=== PATIENT | female | born 1955 | race Caucasian/White ===

== ENCOUNTER 2016-11-11 05:30 | Inpatient (IN) ==
[2016-10-29 09:20] LABS: Basophils # 0.1 10*3/uL (0.0-0.2); Basophils % 0.7 % (0.0-0.8); Eosinophils # 0.2 10*3/uL (0.0-0.87); Eosinophils % 2.5 % (0.00-10.9); Hematocrit 43.1 VOL% (35.7-47.0); Hemoglobin 13.7 GM/DL (12.0-16.0); Immature Granulocytes % 0.4 %; Immature Granulocytes Absolute 0.03 #; Lymphocytes # 2.5 10*3/uL (1.4-4.0); Lymphocytes % 35.5 % (21.3-54.2); Mean Corpuscular HGB Conc 31.8 GM/DL (32-36); Mean Corpuscular Hemoglobin 29 PG (27-34); Mean Corpuscular Volume 90.5 FL (87-102); Mean Platelet Volume 10.2 FL (9.6-12.0); Monocytes # 0.6 10*3/uL (0.11-0.8); Monocytes % 8.7 % (1.7-12.7); Neutrophils # 3.7 10*3/uL (1.4-7.4); Neutrophils % 52.2 % (38.7-73.9); Platelet Count 236 T/CUMM (130-400); Red Blood Count 4.76 MC/CUMM (3.8-5.5); Red Cell Distribution Width 13.4 % (9.3-17.3); White Blood Count 7.1 T/CUMM (4-12)
[2016-10-29 09:27] LABS: Apearance,Urine Slightly Hazy (Clear); Bilirubin,Urine Negative (Negative); Blood, Urine Negative (Negative); Glucose,Urine (UA) Negative (Negative); Ketones,Urine Negative (Negative); Mucus,Urine Occasional /LPF (Occasional); Nitrite,Urine Negative (Negative); Protein,Urine Negative; RBC,Urine 1 /HPF (0-4); Squamous Epithelial Cell,Urine Occasional /HPF (0-10); Urine Color Yellow (Yellow); Urine Urobilinogen < 2.0 EU/DL (0.2-1.0); WBC,Urine 2 /HPF (0-6)
[2016-10-29 09:32] LABS: INR 1.1; PT Patient Result 11.8 SECS; Partial Thromboplastin Time 25.7 SECS (0-40)
--- NOTE | 2016-10-29 09:39 | EKG Report ---
Stationary ECG Study [facility] Test Date: 10/29/2016 9:38:33 AM Pat Name: NISHA NAVARRO Department: Room: Gender: F Atg Architect: LONDON GOEL : 1955 Requested by: Luis Manuel Auguste Order Number: [id number] Reading MD: FAVIO CASTILLO Intervals Branch Rate: 70 P: 74 NV: 150 QRS: 48 QRSD: 98 T: 51 QT: 376 QTc: 397 Interpretive Statements SINUS RHYTHM Electronically Signed On 10-29-16 12:04:51 HEALTH ANALYTICS CONSULTANT by FAVIO CASTILLO [email or web address]
--- NOTE | 2016-10-29 09:42 | XRay Report ---
XR chest 2V Date: 10/29/2016 8:57 AM History: Respiratory preoperative evaluation Comparison: 07/08/2014 Technique: PA and lateral chest Findings: The heart is normal in size with minimal uncoiling of the aorta. The lungs and mediastinum have a stable appearance with degenerative changes. Impression: No acute cardiopulmonary pathology identified. PROCEDURE INTERPRETED AT [facility] DEPARTMENT OF RADIOLOGY Final Report Signed by: Dr. Olivia Briggs
[2016-10-29 09:53] LABS: Albumin 3.8 G/DL (3.4-5.0); Bilirubin,Total 0.4 MG/DL (0.2-1.0); Calcium 9.1 MG/DL (8.5-10.1); Osmolality,Calculated 289.7 MOS/KG (273-304); Potassium 4.8 MMOL/L (3.5-5.1); Total Protein 7.2 G/DL (6.4-8.3)
[2016-11-11] MEDS ORDERED: VANCOMYCIN 1,000 MG VIAL ONE (05:52)
[2016-11-11] MEDS ORDERED: ceFAZolin 1,000 MG VIAL ONE (05:53)
[2016-11-11] MEDS ORDERED: SODIUM CHLORIDE 0.9% 100 ML IV ONE (05:53)
[2016-11-11] MEDS ORDERED: LORazepam 1 MG TABLET PO ONE (06:00)
[2016-11-11] MEDS ORDERED: FAMOTIDINE 20 MG TABLET PO ONE (06:00)
[2016-11-11] MEDS ORDERED: VANCOMYCIN INJ 1,000 MG in SODIUM CHLORIDE 0.9% 250 ML IV ONE ×2 (06:00→16:44)
[2016-11-11] MEDS ORDERED: FAMOTIDINE 20 MG TABLET ONE (06:16)
[2016-11-11] MEDS ORDERED: LORazepam 1 MG TABLET ONE (06:16)
[2016-11-11] MEDS: LACTATED RINGERS 1,000 ML IV SCH ×4 (06:31→20:30)
[2016-11-11] MEDS ORDERED: BACITRACIN OINT 0.9 GM PACK TOP ONE (06:44)
--- NOTE | 2016-11-11 06:48 | History and Physical Update ---
History and Physical Update - History and Physical H&P was reviewed, the patient examined and there: are no changes in the patients condition since last H&P was completed. (Mrs Boles had a cystoscope which she reported as good.)
[2016-11-11] MEDS ORDERED: MORPHINE 10 MG/10 ML VIAL ONE (07:14)
[2016-11-11] MEDS ORDERED: ROPIVACAINE 0.5% 30 ML VIAL ONE (07:42)
[2016-11-11] MEDS ORDERED: TRANEXAMIC ACID 1,000 MG/10 ML VIAL IV ONE (08:12)
[2016-11-11] MEDS ORDERED: oxyCODONE IR 5 MG TABLET PO PRN ×2 (08:43)
[2016-11-11] MEDS ORDERED: MORPHINE 2 MG/1 ML SYRINGE IV PRN (08:43)
[2016-11-11] MEDS ORDERED: ZALEPLON 5 MG CAPSULE PO PRN (08:43)
[2016-11-11] MEDS ORDERED: diphenhydrAMINE CAP 25 MG CAPSULE PO PRN (08:43)
--- NOTE | 2016-11-11 08:48 | Operative Note ---
Date of procedure: 11/11/16 Procedure: DIAGNOSIS: Right knee primary osteoarthrosis PROCEDURE: Right total knee arthroplasty (cpt #78628) SURGEON: Drew EMBEDDED CASE MANAGER: Andra ANESTHESIA: Spinal converted to general with a postoperative femoral nerve block PROCEDURE and FINDINGS: After adequate was induced, the patient's knee was prepped and draped in the usual sterile fashion. The limb was exsanguinated with Esmarch. Tourniquet was inflated to 300 mmHg. A median parapatellar approach was made. Femur was cut using an intramedullary guide and a 4 in 1 cutting jig in 5 degrees of valgus. ACL and menisci were excised. Tibia was cut using intramedullary guide. Patella was cut using freehand technique. Components were trialed. Tibial fin was prepared. Components are cemented in place using Palacos cement and modern cementing techniques. Cement was removed. A 1/8 inch Hemovac drain was placed. The knee was well-balanced and full range of motion with central tracking patella. Deep layers closed with 0-0 Vicryl. Superficial layers were closed with 2-0 and 3-0 Vicryl. Skin was approximated with rolando. Bacitracin and a sterile dressing was applied. Patient was transferred to recovery. A postoperative femoral nerve block is anticipated. COMPONENTS: The Faye Persona system was used. 9 CR narrow femur, E natural tibia, 10 mm liner, 35 mm patella TOURNIQUET TIME: 30 minutes The patient had multiple attempts at spinal. As a consequence, will start anticoagulant at 24 hours. Surgeon / Physician: Luis Manuel Russell Jr. Results - Labs CBC & BMP: 10/29/16 09:07 10/29/16 09:07 Discharge Plan - Discharge Medications No Action Clorazepate [Tranxene] 3.75 mg PO BID PRN PRN Reason: Anxiety Losartan/Hydrochlorothiazide [Losartan-Hctz 100-25 mg Tab] 1 tablet PO DAILY Adalimumab [Humira] 40 mg SQ DIRECTED - Follow Up or Referral - Forms/Instructions
[2016-11-11] MEDS ORDERED: PROPOFOL 200 MG/20 ML VIAL IV ONE (08:57)
[2016-11-11] MEDS ORDERED: MIDAZOLAM 2 MG/2 ML VIAL ONE (08:57)
[2016-11-11] MEDS ORDERED: SEVOFLURANE 1 UNIT/15 MINUTE INH ONE (08:57)
[2016-11-11] MEDS ORDERED: fentaNYL 100 MCG/2 ML VIAL ONE ×2 (08:58→09:00)
[2016-11-11] MEDS ORDERED: ePHEDrine 50 MG/ML AMP ONE (08:58)
[2016-11-11] MEDS ORDERED: ONDANSETRON 4 MG/2 ML VIAL ONE ×2 (08:58→09:30)
[2016-11-11] MEDS ORDERED: GLYCOPYRROLATE 0.4 MG/2 ML VIAL ONE ×2 (08:58→09:01)
[2016-11-11] MEDS ORDERED: ACETAMINOPHEN 1,000 MG/100 ML VIAL IV ONE (08:58)
[2016-11-11] MEDS ORDERED: ROCURONIUM 100 MG/10 ML VIAL IV ONE (08:59)
[2016-11-11] MEDS ORDERED: ONDANSETRON 4 MG/2 ML VIAL IV PRN (09:27)
[2016-11-11] MEDS ORDERED: HYDROmorphone 2 MG/1 ML VIAL ONE (09:30)
[2016-11-11] MEDS: HYDROmorphone 2 MG/1 ML VIAL IV PRN ×2 (09:30→09:35)
--- NOTE | 2016-11-11 10:11 | XRay Report ---
Exam: XR knee 2V RT Date: 11/11/2016 8:45 AM Comparison: 09/10/2014 Indication: Knee replacement Technique:[Portable AP and lateral right knee] Findings: Interval satisfactory right total knee replacement with postoperative findings. No fracture or dislocation. Impression: Interval satisfactory right total knee replacement. PROCEDURE INTERPRETED AT [facility] DEPARTMENT OF RADIOLOGY Final Report Signed by: Dr. Olivia Briggs
[2016-11-11] MEDS: KETOROLAC 30 MG/1 ML VIAL IV SCH ×3 (12:05→22:27)
[2016-11-11] MEDS: MORPHINE 2 MG/1 ML SYRINGE IV PRN (12:09)
[2016-11-11] MEDS: ACETAMINOPHEN 500 MG TABLET PO SCH (13:53)
[2016-11-11] MEDS: ceFAZolin 2,000 MG in PREMIX 1 EACH IV SCH ×2 (13:53→22:27)
[2016-11-11] MEDS: LOSARTAN/HCTZ 50-12.5 MG TABLET PO SCH (13:55)
[2016-11-11] MEDS: DOCUSATE SODIUM 100 MG CAPSULE PO SCH ×2 (13:55→22:27)
--- NOTE | 2016-11-11 15:02 | Anesthesia ---
Anesthesia Post OP - Post Ansesthetic Evaluation Patient seen in post op: Yes Resp: within normal limits CV: within normal limits Mental: within normal limits Temp: within normal limits Uzil-Wk-Aoghkhvey: within normal limits Nausea and Vomiting: within normal limits Pain: within normal limits
--- NOTE | 2016-11-11 17:37 | Orthopedic Progress Note ---
Orthopedics - Subjective Interval history: Comfortable. NV ok. Dressing dry. Continue per protocol. Exam - Constitutional Vitals: Period Temp Pulse Resp BP Sys/Rocha Pulse Ox Last 24 Hr 97.4 F-98.1 F 80-99 12-20 100-150/64-99 90-100 Results - Labs CBC & BMP: 10/29/16 09:07 10/29/16 09:07
[2016-11-12] MEDS: KETOROLAC 30 MG/1 ML VIAL IV SCH (03:29)
[2016-11-12] MEDS: ACETAMINOPHEN 500 MG TABLET PO SCH ×3 (03:31→06:08)
[2016-11-12 05:43] LABS: Basophils % 0.4 % (0.0-0.8); Eosinophils # 0.1 10*3/uL (0.0-0.87); Eosinophils % 1.5 % (0.00-10.9); Hematocrit 35.1 VOL% (35.7-47.0); Immature Granulocytes % 0.4 %; Immature Granulocytes Absolute 0.04 #; Lymphocytes # 1.6 10*3/uL (1.4-4.0); Lymphocytes % 16.2 % (21.3-54.2); Mean Corpuscular HGB Conc 31.3 GM/DL (32-36); Mean Corpuscular Hemoglobin 29 PG (27-34); Mean Corpuscular Volume 93.1 FL (87-102); Mean Platelet Volume 10.8 FL (9.6-12.0); Monocytes # 1.5 10*3/uL (0.11-0.8); Monocytes % 15.7 % (1.7-12.7); Neutrophils # 6.3 10*3/uL (1.4-7.4); Neutrophils % 65.8 % (38.7-73.9); Platelet Count 201 T/CUMM (130-400); Red Blood Count 3.77 MC/CUMM (3.8-5.5); Red Cell Distribution Width 13.5 % (9.3-17.3); White Blood Count 9.6 T/CUMM (4-12)
[2016-11-12 06:10] LABS: Eosinophils 2 % (0-10); Lymphocytes 15 % (20-55); Segmented Neutrophils 74 % (50-85); Total Cells Counted 100
[2016-11-12 06:11] LABS: Hypochromasia 1+; Platelet Estimate Adequate
[2016-11-12 06:26] LABS: Calcium 8.7 MG/DL (8.5-10.1); Osmolality,Calculated 288.7 MOS/KG (273-304); Potassium 3.9 MMOL/L (3.5-5.1)
--- NOTE | 2016-11-12 08:13 | Orthopedic Progress Note ---
Orthopedics - Subjective Interval history: Amber Boles feels better this am. RLE dressed. NV ok. Plan swing bed placement. Mobilize per protocol. Exam - Constitutional Vitals: Period Temp Pulse Resp BP Sys/Rocha Pulse Ox Last 24 Hr 97.4 F-98.1 F 80-99 12-20 89-123/51-82 90-100 Results - Labs CBC & BMP: 11/12/16 04:21 11/12/16 04:21
[2016-11-12] MEDS: DOCUSATE SODIUM 100 MG CAPSULE PO SCH ×2 (10:52→21:46)
[2016-11-12] MEDS: LOSARTAN/HCTZ 50-12.5 MG TABLET PO SCH (10:53)
[2016-11-12] MEDS: FONDAPARINUX 2.5 MG/0.5 ML SYRINGE SUBCUT SCH (10:53)
--- NOTE | 2016-11-12 11:19 | Pathology Report from [facility] ---
ACCESSION # : [id number] PATIENT NAME : Amber Navarro ORDERING DR : DONELL GOEL MD CLINICAL HX: RT knee osteoarthritis POST-OP DX: Same SPECIMEN INFO: RT knee bone & tissue GROSS DESCRIPTION: The specimen is received in formalin labeled with the patient 's name and consists of an aggregate of helton bone soft tissue and cartilage measuring 13.0 x 7.0 cm. The articular surfaces are focally degenerative with areas of subchondral eburnation seen. Senior Bioinformatics Scientist sections submitted in one cassette. DIAGNOSIS FOR AMBER NAVARRO: Fragments of right knee joint showing changes of degenerative joint disease/ osteoarthritis. SERVICE DATE: 11/11/2016 REPORT DATE: 11/12/2016 PATHOLOGIST: Mario Edwards M.D. [facility]
[2016-11-12] MEDS: CELECOXIB 200 MG CAPSULE PO SCH (12:10)
[2016-11-12] MEDS: MORPHINE 2 MG/1 ML SYRINGE IV PRN ×2 (12:11→17:28)
[2016-11-12] MEDS: ONDANSETRON 4 MG/2 ML VIAL IV PRN (17:44)
[2016-11-13 04:09] LABS: Basophils % 0.3 % (0.0-0.8); Eosinophils # 0.2 10*3/uL (0.0-0.87); Eosinophils % 1.7 % (0.00-10.9); Hematocrit 36.7 VOL% (35.7-47.0); Hemoglobin 11.7 GM/DL (12.0-16.0); Immature Granulocytes % 0.4 %; Immature Granulocytes Absolute 0.05 #; Lymphocytes # 2.1 10*3/uL (1.4-4.0); Lymphocytes % 17.2 % (21.3-54.2); Mean Corpuscular HGB Conc 31.9 GM/DL (32-36); Mean Corpuscular Hemoglobin 29 PG (27-34); Mean Corpuscular Volume 92.2 FL (87-102); Mean Platelet Volume 11.5 FL (9.6-12.0); Monocytes % 16.5 % (1.7-12.7); Neutrophils # 7.7 10*3/uL (1.4-7.4); Neutrophils % 63.9 % (38.7-73.9); Platelet Count 211 T/CUMM (130-400); Red Blood Count 3.98 MC/CUMM (3.8-5.5); Red Cell Distribution Width 13.5 % (9.3-17.3)
[2016-11-13 05:42] LABS: Lymphocytes 16 % (20-55); Myelocytes 1 %; Platelet Estimate Normal; Segmented Neutrophils 70 % (50-85); Total Cells Counted 100
[2016-11-13] MEDS: ACETAMINOPHEN 325 MG TABLET PO PRN (05:49)
[2016-11-13] MEDS: LACTATED RINGERS 1,000 ML IV SCH ×2 (08:03)
[2016-11-13] MEDS: CELECOXIB 200 MG CAPSULE PO SCH (08:48)
[2016-11-13] MEDS: LOSARTAN/HCTZ 50-12.5 MG TABLET PO SCH (08:48)
[2016-11-13] MEDS: FONDAPARINUX 2.5 MG/0.5 ML SYRINGE SUBCUT SCH (08:48)
[2016-11-13] MEDS: DOCUSATE SODIUM 100 MG CAPSULE PO SCH ×2 (08:48→21:05)
--- NOTE | 2016-11-13 09:37 | Orthopedic Progress Note ---
Assessment and Plan (1) Status post total right knee replacement Status: Acute Assessment and plan: DVT prophylaxis Out of bed with therapy Discharge to swing bed Tuesday Current Visit: Yes Orthopedics - Subjective Interval history: No new complaints, pain is controlled. On exam her dressings clean and dry, she is neurovascularly intact. Exam - Constitutional Vitals: Period Temp Pulse Resp BP Sys/Rocha Pulse Ox Last 24 Hr 97.3 F-98.7 F 92-103 16-20 106-134/54-78 90-93 Results - Labs CBC & BMP: 11/13/16 02:31 11/12/16 04:21
[2016-11-13] MEDS: MORPHINE 2 MG/1 ML SYRINGE IV PRN (18:45)
[2016-11-14 03:04] LABS: Basophils % 0.4 % (0.0-0.8); Eosinophils # 0.2 10*3/uL (0.0-0.87); Eosinophils % 1.7 % (0.00-10.9); Hematocrit 34.4 VOL% (35.7-47.0); Hemoglobin 10.9 GM/DL (12.0-16.0); Immature Granulocytes % 0.6 %; Immature Granulocytes Absolute 0.06 #; Lymphocytes # 1.9 10*3/uL (1.4-4.0); Lymphocytes % 18.7 % (21.3-54.2); Mean Corpuscular HGB Conc 31.7 GM/DL (32-36); Mean Corpuscular Hemoglobin 29 PG (27-34); Mean Corpuscular Volume 91.5 FL (87-102); Mean Platelet Volume 10.8 FL (9.6-12.0); Monocytes # 1.7 10*3/uL (0.11-0.8); Monocytes % 16.9 % (1.7-12.7); Neutrophils # 6.4 10*3/uL (1.4-7.4); Neutrophils % 61.7 % (38.7-73.9); Platelet Count 217 T/CUMM (130-400); Red Blood Count 3.76 MC/CUMM (3.8-5.5); Red Cell Distribution Width 13.3 % (9.3-17.3); White Blood Count 10.3 T/CUMM (4-12)
[2016-11-14 03:52] LABS: Band Neutrophils 1 % (0-10); Eosinophils 2 % (0-10); Lymphocytes 17 % (20-55); Myelocytes 2 %; Segmented Neutrophils 70 % (50-85)
[2016-11-14 03:53] LABS: Platelet Estimate Normal; Total Cells Counted 100
--- NOTE | 2016-11-14 08:36 | Discharge Summary ---
Hospital Course - Hospital Course Hospital Course: 61-year-old female underwent total knee arthroplasty. Transfer to the floor in stable condition postoperatively. She received routine antibiotics and thromboprophylaxis. She was seen by therapy daily. She was somewhat slow to get around with therapy and desired postoperative rehabilitation. Once a bed was available, she will subsequent discharge. Plan discharge her wound was clean and dry and she was neurovascularly intact. Diagnosis - Discharge Diagnosis (1) Status post total right knee replacement Status: Acute Discharge Plan - Discharge Data Disposition: Disch/Xfer-Ip Rehab Fac Condition at Discharge: Stable Discharge Diet: advance to your usual diet Activity: ambulate only with your walker Hygiene: may shower Weight Bearing at Discharge: weight bear as tolerated Driving: not until seen by doctor Contact your physician if you experience:: fever over 101, Difficulty voiding, Redness or swelling, Nausea/Vomiting, Shortness of breath, Bleeding, pain uncontrolled by pain medications Wound / Dressing Care Instructions: daily dressing change. rolando out 11/23/16 - Discharge Medications New Acetaminophen Tab [Tylenol Tab] 650 mg PO Q6H PRN #0 tablet PRN Reason: Pain Mild (1-3) Docusate Sodium Cap [Colace Cap] 100 mg PO BID capsule Fondaparinux [Arixtra] 2.5 mg SUBCUT Q24H syringe HYDROcodone/ACETAMIN 7.5-325 [Manquin 7.5-325] 1 - 2 tablet PO Q4H PRN #60 tablet PRN Reason: Pain Moderate (4-7) Continue Clorazepate [Tranxene] 3.75 mg PO BID PRN PRN Reason: Anxiety Losartan/Hydrochlorothiazide [Losartan-Hctz 100-25 mg Tab] 1 tablet PO DAILY - Follow Up or Referral Follow Up: Luis Manuel Russell Jr., MD [Physician] - (3-4 weeks ) - Forms/Instructions Exam - Constitutional Vitals: Period Temp Pulse Resp BP Sys/Rocha Pulse Ox Last 24 Hr 97.7 F-98.2 F 82-95 16-18 89-123/50-72 92-99 Discharge Results Labs on day of discharge: Labs from last 24 hours 11/14/16 02:18 WBC 10.3 RBC 3.76 L Hgb 10.9 L Hct 34.4 L MCV 91.5 MCH 29 MCHC 31.7 L RDW 13.3 Plt Count 217 MPV 10.8 Neut % (Auto) 61.7 Lymph % (Auto) 18.7 L [place] % (Auto) 16.9 H Eos % (Auto) 1.7 Baso % (Auto) 0.4 Neut # (Auto) 6.4 Lymph # (Auto) 1.9 [place] # (Auto) 1.7 H Eos # (Auto) 0.2 Baso # (Auto) 0.0 Total Counted 100 Immature Gran % 0.6 Nucleated RBC % 0.0 Immature Gran # 0.06 Segmented Neutrophils 70 Band Neutrophils 1 Lymphocytes 17 L Monocytes 8 Eosinophils 2 Myelocytes 2 Nucleated RBCs # 0.00 Platelet Estimate Normal DS: Provider Date of admission: 11/11/16 05:30 Primary care physician: Bryson Holland MD Attending physician on admission: Luis Manuel Russell Jr., Consults: 11/11/16 08:43 Consult to Case Mgmt/Social Srvs [CONS] Routine Reason for Case Mgmt/Social Srvs: Rehab Home Health Equipment Consult Comment: Bedside Commode, CPM, Walker Consult to Occupational Therapy [CONS] Routine Reason for Occupational Therapy: Evaluate and Treat Consult Comment: ADL's Consult to Physical Therapy [CONS] Routine Reason for Physical Therapy: Evaluate and Treat Gait Training Start Therapy: Today Discharging clinician: Scotty Silverman MD
[2016-11-14] MEDS: FONDAPARINUX 2.5 MG/0.5 ML SYRINGE SUBCUT SCH (10:12)
[2016-11-14] MEDS: DOCUSATE SODIUM 100 MG CAPSULE PO SCH ×2 (10:12→21:09)
[2016-11-14] MEDS: CELECOXIB 200 MG CAPSULE PO SCH (10:12)
[2016-11-14] MEDS: LOSARTAN/HCTZ 50-12.5 MG TABLET PO SCH (10:12)
[2016-11-14] MEDS: MAGNESIUM HYDROXIDE SUSP 30 ML UDCUP PO PRN ×2 (11:21→17:32)
[2016-11-14] MEDS ORDERED: BISACODYL 10 MG SUPP RECTAL ONE (11:52)
[2016-11-14] MEDS: ONDANSETRON 4 MG/2 ML VIAL IV PRN ×2 (12:32→14:58)
[2016-11-14] MEDS: CLORAZEPATE 3.75 MG TABLET PO PRN (12:40)
[2016-11-14] MEDS: ACETAMINOPHEN 325 MG TABLET PO PRN (22:41)
--- NOTE | 2016-11-15 08:10 | Orthopedic Progress Note ---
Orthopedics - Subjective Interval history: Amber Boles has done well this weekend. She was supposed to be discharged to inpatient rehabilitation yesterday. However, discharge was held up because she had not had a bowel movement. She did have one early this morning. She is mobilizing with therapy. However, she is progressing slowly would benefit from inpatient rehabilitation. She also has a with terminal esophageal cancer. Dressing clean, dry and intact. Left lower extremity neurovascularly unchanged Plan: Discharge to R later today. Exam - Constitutional Vitals: Period Temp Pulse Resp BP Sys/Rocha Pulse Ox Last 24 Hr 97.5 F-98.4 F 85-96 12-20 103-136/57-73 91-98 Results - Labs CBC & BMP: 11/14/16 02:18 11/12/16 04:21 Specialty Discharge - Follow Up or Referrals Follow up with: Luis Manuel Russell Jr., MD [Physician] - (3-4 weeks )
[2016-11-15] MEDS: FONDAPARINUX 2.5 MG/0.5 ML SYRINGE SUBCUT SCH (09:19)
[2016-11-15] MEDS: LOSARTAN/HCTZ 50-12.5 MG TABLET PO SCH (09:20)
[2016-11-15] MEDS: CELECOXIB 200 MG CAPSULE PO SCH (09:20)
[2016-11-15] MEDS: CLORAZEPATE 3.75 MG TABLET PO PRN (09:21)
[2016-11-15] MEDS: DOCUSATE SODIUM 100 MG CAPSULE PO SCH (09:25)
[2016-11-15 20:22] VITALS: BP 105/66
== END 2016-11-15 13:20 | DRG 470 ==
LOC: N.SDSINP 05:30 → N.3E 10:16
PROVIDERS: ADMIT Orthopaedic Surgery; ATTEND Orthopaedic Surgery

== ENCOUNTER 2017-10-12 05:40 | Inpatient (IN) ==
[2017-10-04 11:10] LABS: Basophils # 0.1 10*3/uL (0.0-0.2); Basophils % 0.8 % (0.0-0.8); Eosinophils # 0.2 10*3/uL (0.0-0.87); Eosinophils % 1.8 % (0.00-10.9); Hematocrit 45.1 VOL% (35.7-47.0); Hemoglobin 14.5 GM/DL (12.0-16.0); Immature Granulocytes % 0.7 %; Immature Granulocytes Absolute 0.06 #; Lymphocytes # 3.3 10*3/uL (1.4-4.0); Mean Corpuscular HGB Conc 32.2 GM/DL (32-36); Mean Corpuscular Hemoglobin 29 PG (27-34); Mean Platelet Volume 10.4 FL (9.6-12.0); Monocytes # 0.8 10*3/uL (0.11-0.8); Monocytes % 9.2 % (1.7-12.7); Neutrophils # 4.7 10*3/uL (1.4-7.4); Neutrophils % 51.5 % (38.7-73.9); Platelet Count 235 T/CUMM (130-400); Red Blood Count 5.07 MC/CUMM (3.8-5.5); Red Cell Distribution Width 13.4 % (9.3-17.3)
[2017-10-04 11:38] LABS: Apearance,Urine CLEAR (Clear); Bilirubin,Urine Negative (Negative); Blood, Urine Negative (Negative); Glucose,Urine (UA) Negative (Negative); Ketones,Urine Negative (Negative); Mucus,Urine Occasional /LPF (Occasional); Nitrite,Urine Negative (Negative); Protein,Urine Negative; RBC,Urine <1 /HPF (0-4); Squamous Epithelial Cell,Urine Occasional /HPF (0-10); Urine Color Yellow (Yellow); Urine Specific Gravity 1.017 (1.001-1.035); Urine Urobilinogen < 2.0 EU/DL (0.2-1.0); WBC,Urine 1 /HPF (0-6)
[2017-10-04 11:51] LABS: Calcium 9.3 MG/DL (8.5-10.1); Osmolality,Calculated 281.4 MOS/KG (273-304); Potassium 4.3 MMOL/L (3.5-5.1)
[2017-10-12] MEDS ORDERED: cefTRIAXone 1,000 MG in SYRINGE 1 EACH IV ONE (06:00)
[2017-10-12] MEDS ORDERED: cefTRIAXone 1,000 MG VIAL ONE (06:07)
[2017-10-12] MEDS: LACTATED RINGERS 1,000 ML IV SCH (06:36)
[2017-10-12] MEDS ORDERED: fentaNYL 100 MCG/2 ML VIAL ONE ×2 (12:33→12:34)
[2017-10-12] MEDS ORDERED: ACETAMINOPHEN 1,000 MG/100 ML VIAL IV ONE (12:34)
[2017-10-12] MEDS ORDERED: MIDAZOLAM 2 MG/2 ML VIAL ONE (12:34)
[2017-10-12] MEDS ORDERED: diphenhydrAMINE 50 MG/1 ML VIAL IV PRN (12:36)
[2017-10-12] MEDS ORDERED: NALOXONE 0.4 MG/ML VIAL IV PRN ×2 (12:44→14:21)
[2017-10-12] MEDS ORDERED: DESFLURANE 1 UNIT/15 MINUTE INH ONE (12:47)
[2017-10-12] MEDS ORDERED: ONDANSETRON 4 MG/2 ML VIAL ONE (12:47)
[2017-10-12] MEDS ORDERED: DEXAMETHASONE 10 MG/1 ML VIAL ONE (12:47)
[2017-10-12] MEDS ORDERED: LACTATED RINGERS 1,000 ML IV ONE (12:47)
[2017-10-12] MEDS ORDERED: GLYCOPYRROLATE 0.4 MG/2 ML VIAL ONE ×2 (12:47)
[2017-10-12] MEDS ORDERED: NEOSTIGMINE 10 MG/10 ML VIAL ONE (12:47)
[2017-10-12] MEDS ORDERED: ROCURONIUM 100 MG/10 ML VIAL IV ONE (12:48)
[2017-10-12] MEDS ORDERED: MORPHINE PCA 150 MG/30 ML SYRINGE IV SCH (13:00)
[2017-10-12] MEDS ORDERED: MORPHINE PCA 30 MG/30 ML SYRINGE IV ONE (13:01)
[2017-10-12 13:04] LABS: Apearance,Urine Slightly Hazy (Clear); Bilirubin,Urine Negative (Negative); Blood, Urine Moderate mg/dL (Negative); Glucose,Urine (UA) Negative (Negative); Ketones,Urine Negative (Negative); Nitrite,Urine Negative (Negative); Protein,Urine Negative; RBC,Urine 177 /HPF (0-4); Urine Color Straw (Yellow); Urine Specific Gravity 1.009 (1.001-1.035); Urine Urobilinogen < 2.0 EU/DL (0.2-1.0); WBC,Urine 2 /HPF (0-6)
[2017-10-12] MEDS ORDERED: SCOPOLAMINE 1.5 MG PATCH TRANSDERM ONE ×2 (13:38→13:47)
[2017-10-12] MEDS ORDERED: ONDANSETRON 4 MG/2 ML VIAL IV ONE (13:47)
[2017-10-12] MEDS ORDERED: MORPHINE PCA 30 MG/30 ML SYRINGE IV SCH (14:30)
[2017-10-12] MEDS: OXYBUTYNIN XL 10 MG TABLET PO SCH (16:20)
[2017-10-12] MEDS: DEXTROSE 5% NACL 0.45% 1,000 ML IV SCH (16:21)
[2017-10-12] MEDS: ONDANSETRON 4 MG/2 ML VIAL IV PRN (20:26)
[2017-10-13] MEDS: DEXTROSE 5% NACL 0.45% 1,000 ML IV SCH ×2 (01:27→09:42)
[2017-10-13] MEDS: ONDANSETRON 4 MG/2 ML VIAL IV PRN ×2 (01:44→09:42)
[2017-10-13 07:06] LABS: Basophils % 0.2 % (0.0-0.8); Hematocrit 42.1 VOL% (35.7-47.0); Hemoglobin 13.5 GM/DL (12.0-16.0); Immature Granulocytes % 0.6 %; Immature Granulocytes Absolute 0.12 #; Lymphocytes # 1.5 10*3/uL (1.4-4.0); Lymphocytes % 6.9 % (21.3-54.2); Mean Corpuscular HGB Conc 32.1 GM/DL (32-36); Mean Corpuscular Hemoglobin 29 PG (27-34); Mean Corpuscular Volume 90.1 FL (87-102); Mean Platelet Volume 10.8 FL (9.6-12.0); Monocytes # 1.6 10*3/uL (0.11-0.8); Monocytes % 7.5 % (1.7-12.7); Neutrophils % 84.8 % (38.7-73.9); Platelet Count 306 T/CUMM (130-400); Red Blood Count 4.67 MC/CUMM (3.8-5.5); Red Cell Distribution Width 13.9 % (9.3-17.3); White Blood Count 21.2 T/CUMM (4-12)
[2017-10-13 07:32] LABS: Eosinophils 1 % (0-10); Giant Platelets Few; Hypochromasia 1+; Lymphocytes 9 % (20-55); Ovalocytes Slight; Platelet Estimate Adequate; Segmented Neutrophils 84 % (50-85); Total Cells Counted 100
[2017-10-13 07:33] LABS: Calcium 8.8 MG/DL (8.5-10.1); Osmolality,Calculated 280.5 MOS/KG (273-304); Potassium 4.2 MMOL/L (3.5-5.1)
[2017-10-13] MEDS ORDERED: oxyCODONE/ACETAMINOPHEN 5-325 MG TABLET PO PRN (08:57)
[2017-10-13] MEDS ORDERED: MEPERIDINE 50 MG/1 ML VIAL IM PRN (08:58)
[2017-10-13] MEDS: OXYBUTYNIN XL 10 MG TABLET PO SCH (09:42)
[2017-10-13] MEDS: LACTATED RINGERS 1,000 ML IV SCH (09:43)
[2017-10-13] MEDS: oxyCODONE/ACETAMINOPHEN 5-325 MG TABLET PO PRN ×2 (10:01→13:38)
[2017-10-13] MEDS ORDERED: BISACODYL 10 MG SUPP RECTAL ONE (12:34)
[2017-10-14] MEDS: DEXTROSE 5% NACL 0.45% 1,000 ML IV SCH ×2 (01:38→07:44)
[2017-10-14] MEDS: oxyCODONE/ACETAMINOPHEN 5-325 MG TABLET PO PRN ×2 (02:19→09:20)
[2017-10-14 06:17] LABS: Basophils # 0.1 10*3/uL (0.0-0.2); Basophils % 0.7 % (0.0-0.8); Eosinophils # 0.3 10*3/uL (0.0-0.87); Eosinophils % 2.3 % (0.00-10.9); Hematocrit 39.7 VOL% (35.7-47.0); Hemoglobin 12.8 GM/DL (12.0-16.0); Immature Granulocytes % 0.4 %; Immature Granulocytes Absolute 0.05 #; Lymphocytes # 3.7 10*3/uL (1.4-4.0); Mean Corpuscular HGB Conc 32.2 GM/DL (32-36); Mean Corpuscular Hemoglobin 29 PG (27-34); Mean Platelet Volume 10.8 FL (9.6-12.0); Monocytes # 1.1 10*3/uL (0.11-0.8); Monocytes % 7.9 % (1.7-12.7); Neutrophils # 8.5 10*3/uL (1.4-7.4); Neutrophils % 61.7 % (38.7-73.9); Platelet Count 261 T/CUMM (130-400); Red Blood Count 4.41 MC/CUMM (3.8-5.5); Red Cell Distribution Width 14.1 % (9.3-17.3); White Blood Count 13.8 T/CUMM (4-12)
[2017-10-14 08:29] VITALS: BP 106/65
[2017-10-14] MEDS ORDERED: CLORAZEPATE 3.75 MG TABLET PO PRN (09:06)
[2017-10-14] MEDS ORDERED: Adalimumab [Humira Pen] 40 MG SUBCUT SCH (09:15)
[2017-10-14] MEDS: OXYBUTYNIN XL 10 MG TABLET PO SCH (09:20)
[2017-10-14] MEDS ORDERED: LOSARTAN/HCTZ 50-12.5 MG TABLET PO SCH (09:30)
== END 2017-10-14 11:58 | disposition home or self-care (01) | DRG 660 ==
LOC: N.OR 05:40 → N.SDSINP 05:42 → N.5E 15:10
PROVIDERS: ADMIT Urology; ATTEND Urology